=== PATIENT | female | born 1970 | race Caucasian/White ===

== ENCOUNTER → 2017-09-22 | Outpatient (CLI) | payer MEDICARE ==
[~2017-09-22] MED LIST: ACCUNEB 0.1.25 MG/1 INH; ACETAMINOPHEN-O1 TAB PO; AMOXICILLIN500 MG PO; ASPIRIN81 M1 PO; ATARAX,VISTARIL50 MG PO; ATIVAN1 MG PO; B12-METHYL1000 MCG PO; CEPHALEXIN500 M1 PO; DOXYCYCLINE100 MG PO; FLONASE 0.05% 121 EA NAS; HYDROCODONE BIT1 T11 PO; KLONOPIN0.5 MG PO; LORAZEPAM0.5 MG PO; LUVOX50 MG PO; MEDROL DOSEPAK4 MG PO; MULTIPLE VITAMI1 TAB PO; ONDANSETRON HYDR4 M1 PO; SEROQUEL100 MG PO; ULTRAM50 MG PO; VITAMIN B-11 TAB PO; VITAMIN D32000 UNIT PO; XOPENEX0.63 MG INH
== END | disposition home or self-care (01) ==
LOC: MAMMO 14:38
DX: Z12.31 Encounter for screening mammogram for malignant neoplasm of breast (principal)

== ENCOUNTER → 2021-07-23 | Outpatient (CLI) | payer OTHER ==
[~2021-07-23] MED LIST changes: +BUSPIRONE15 MG PO; +DOXEPIN HCL10 MG PO; +LAMICTAL100 MG PO; +NEURONTIN600 MG PO; +PRILOSEC20 M1 PO; +TENORMIN25 M1 PO
== END | disposition home or self-care (01) ==
LOC: US 01:48 → CARD 11:30
PROVIDERS: ATTEND Internal Medicine
DX: I70.292 Other atherosclerosis of native arteries of extremities, left leg (principal); R07.2 Precordial pain

== ENCOUNTER → 2021-07-24 | Outpatient (CLI) | payer OTHER | END | disposition home or self-care (01) | LOC: CARD 00:01 | PROVIDERS: ATTEND Internal Medicine | DX: R07.2 Precordial pain (principal); I73.9 Peripheral vascular disease, unspecified ==

== ENCOUNTER → 2022-07-08 | Day surgery (SDC) | payer OTHER ==
[2022-07-07 14:36] LABS: BUN 8 mg/dl (7-24); CHLORIDE 107 mmol/L (98-107); CREATININE 0.91 mg/dL (0.55-1.02); POTASSIUM 4.3 mmol/L (3.5-5.1); SODIUM 137 mmol/L (136-145)
[~2022-07-08] VITALS: Ht 162.5 cm; Wt 79.8 kg
[~2022-07-08] MED LIST changes: +ABILIFY MAINTE400 M1 IM
[2022-07-08 08:07] LABS: BUN 8 mg/dl (7-24); CHLORIDE 113 mmol/L (98-107); POTASSIUM 4.1 mmol/L (3.5-5.1); SODIUM 141 mmol/L (136-145)
[2022-07-08 08:56] VITALS: BP 113/65
[2022-07-08 09:07] VITALS: BP 106/63
[2022-07-08 09:23] VITALS: BP 111/69
== END | disposition home or self-care (01) ==
LOC: SDC 07-04 10:15
PROVIDERS: ATTEND Orthopaedic Surgery
DX: G56.03 Carpal tunnel syndrome, bilateral upper limbs (principal); J44.9 Chronic obstructive pulmonary disease, unspecified; F41.9 Anxiety disorder, unspecified; I10 Essential (primary) hypertension; F31.9 Bipolar disorder, unspecified; Z86.73 Personal history of transient ischemic attack (TIA), and cerebral infarction without residual deficits

== ENCOUNTER → 2022-08-25 | Outpatient (CLI) | payer OTHER | END | disposition home or self-care (01) | LOC: MAMMO 07-17 13:30 → US 07-17 14:00 → MAMMO 01:29 | PROVIDERS: ATTEND Internal Medicine | DX: Z12.31 Encounter for screening mammogram for malignant neoplasm of breast (principal); I73.9 Peripheral vascular disease, unspecified; M79.89 Other specified soft tissue disorders ==

== ENCOUNTER → 2023-03-26 | Outpatient (CLI) | payer OTHER | END | disposition home or self-care (01) | LOC: RAD 12:36 | PROVIDERS: ATTEND Internal Medicine | DX: R07.9 Chest pain, unspecified (principal) ==

== ENCOUNTER → 2023-04-01 | Outpatient (CLI) | payer OTHER | END | disposition home or self-care (01) | LOC: CARD 03-30 10:30 | PROVIDERS: ATTEND Internal Medicine | DX: I49.1 Atrial premature depolarization (principal); R00.0 Tachycardia, unspecified; R53.83 Other fatigue ==

== ENCOUNTER → 2023-04-27 | Outpatient (CLI) | payer OTHER | END | disposition home or self-care (01) | LOC: CARD 11:30 | PROVIDERS: ATTEND Internal Medicine | DX: I31.39 Other pericardial effusion (noninflammatory) (principal); J44.1 Chronic obstructive pulmonary disease with (acute) exacerbation; R06.02 Shortness of breath; R00.0 Tachycardia, unspecified; R53.83 Other fatigue ==

== ENCOUNTER → 2023-04-30 | Outpatient (CLI) | payer OTHER | END | disposition home or self-care (01) | LOC: US 04-16 01:31 | PROVIDERS: ATTEND Internal Medicine | DX: K76.0 Fatty (change of) liver, not elsewhere classified (principal) ==

== ENCOUNTER → 2023-11-19 | Outpatient (CLI) | payer OTHER | END | disposition home or self-care (01) | LOC: US 00:34 | PROVIDERS: ATTEND Internal Medicine | DX: N20.0 Calculus of kidney (principal); R31.9 Hematuria, unspecified; E04.2 Nontoxic multinodular goiter; Z96.0 Presence of urogenital implants ==

== ENCOUNTER → 2023-12-09 | Outpatient (CLI) | payer OTHER | END | disposition home or self-care (01) | LOC: MAMMO 01:35 | PROVIDERS: ATTEND Internal Medicine | DX: Z12.31 Encounter for screening mammogram for malignant neoplasm of breast (principal) ==

== ENCOUNTER → 2023-12-11 | Outpatient (CLI) | payer OTHER ==
[~2023-12-11] MED LIST changes: +IOHEXOL 350 MG/ML 100 ML VIAL IV ONE
== END | disposition home or self-care (01) ==
LOC: LAB 02:08 → CT 02:08 → LAB 10:00 → CT 10:00
PROVIDERS: ATTEND Urology
DX: N20.0 Calculus of kidney (principal); N25.9 Disorder resulting from impaired renal tubular function, unspecified; I70.0 Atherosclerosis of aorta; R31.9 Hematuria, unspecified

== ENCOUNTER 2023-12-26 17:10 | Emergency (ER) | payer OTHER ==
[~2023-12-26] VITALS: Ht 162.5 cm; Wt 64.9 kg
[~2023-12-26 17:10] MED LIST changes: -IOHEXOL 350 MG/ML 100 ML VIAL IV ONE
[2023-12-26] MEDS ORDERED: SILVER SULFADIAZINE 25 GM TUBE T ONE (17:25)
[2023-12-26] MEDS ORDERED: Bacitracin Zinc 14 GM TUBE T ONE (17:25)
[2023-12-26] MEDS ORDERED: SILVADENE20 GM T (17:45)
[2023-12-26] MEDS ORDERED: [UNRECOGNIZED DRUG - REMARK] T (17:45)
[2023-12-26] MEDS ORDERED: ANTIBIOTIC28.4 GM T (17:45)
[2023-12-26] MEDS ORDERED: ACETAMINOPHEN 325 MG TAB PO ONE (17:45)
== END 2023-12-26 17:49 | disposition home or self-care (01) ==
LOC: ED 17:10
DX: T23.101A Burn of first degree of right hand, unspecified site, initial encounter (principal); T21.11XA Burn of first degree of chest wall, initial encounter; T31.0 Burns involving less than 10% of body surface; F41.9 Anxiety disorder, unspecified; J44.9 Chronic obstructive pulmonary disease, unspecified; Z86.73 Personal history of transient ischemic attack (TIA), and cerebral infarction without residual deficits; I10 Essential (primary) hypertension; J45.909 Unspecified asthma, uncomplicated; F31.9 Bipolar disorder, unspecified; Z72.0 Tobacco use; Z90.710 Acquired absence of both cervix and uterus; Z98.890 Other specified postprocedural states; X08.8XXA Exposure to other specified smoke, fire and flames, initial encounter; Y93.89 Activity, other specified; Y92.89 Other specified places as the place of occurrence of the external cause; Y99.8 Other external cause status

== ENCOUNTER → 2023-12-29 | Outpatient (CLI) | payer OTHER ==
[~2023-12-29] MED LIST changes: +ANTIBIOTIC28.4 GM T; +SILVADENE20 GM T; +[UNRECOGNIZED DRUG - REMARK] T
== END | disposition home or self-care (01) ==
LOC: WOUNDCARE 00:09
PROVIDERS: ATTEND Nurse Practitioner Family
DX: T22.191A Burn of first degree of multiple sites of right shoulder and upper limb, except wrist and hand, initial encounter (principal); T23.302A Burn of third degree of left hand, unspecified site, initial encounter; T23.201A Burn of second degree of right hand, unspecified site, initial encounter; T31.0 Burns involving less than 10% of body surface; I10 Essential (primary) hypertension; L53.9 Erythematous condition, unspecified; R60.9 Edema, unspecified; F20.9 Schizophrenia, unspecified; F31.9 Bipolar disorder, unspecified; F17.290 Nicotine dependence, other tobacco product, uncomplicated; Z90.710 Acquired absence of both cervix and uterus; Z79.899 Other long term (current) drug therapy; X10.2XXA Contact with fats and cooking oils, initial encounter; Y93.89 Activity, other specified; Y92.89 Other specified places as the place of occurrence of the external cause; Y99.8 Other external cause status

== ENCOUNTER → 2024-01-06 | Outpatient (CLI) | payer OTHER | END | disposition home or self-care (01) | LOC: WOUNDCARE 01:27 | PROVIDERS: ATTEND Nurse Practitioner Family | DX: T23.302D Burn of third degree of left hand, unspecified site, subsequent encounter (principal); T23.301D Burn of third degree of right hand, unspecified site, subsequent encounter; T22.19 Burn of first degree of multiple sites of shoulder and upper limb, except wrist and hand; T31.0 Burns involving less than 10% of body surface; I10 Essential (primary) hypertension; L53.9 Erythematous condition, unspecified; R60.9 Edema, unspecified; F20.9 Schizophrenia, unspecified; F31.9 Bipolar disorder, unspecified; F17.290 Nicotine dependence, other tobacco product, uncomplicated; Z90.710 Acquired absence of both cervix and uterus; Z79.899 Other long term (current) drug therapy; X10.2XXD Contact with fats and cooking oils, subsequent encounter ==

== ENCOUNTER → 2024-01-21 | Outpatient (CLI) | payer OTHER | END | disposition home or self-care (01) | LOC: WOUNDCARE 01:47 | PROVIDERS: ATTEND Nurse Practitioner Family | DX: T23.302D Burn of third degree of left hand, unspecified site, subsequent encounter (principal); T23.301D Burn of third degree of right hand, unspecified site, subsequent encounter; T22.19 Burn of first degree of multiple sites of shoulder and upper limb, except wrist and hand; T31.0 Burns involving less than 10% of body surface; I10 Essential (primary) hypertension; L53.9 Erythematous condition, unspecified; R60.9 Edema, unspecified; F20.9 Schizophrenia, unspecified; F31.9 Bipolar disorder, unspecified; F17.290 Nicotine dependence, other tobacco product, uncomplicated; Z90.710 Acquired absence of both cervix and uterus; Z79.899 Other long term (current) drug therapy; X10.2XXD Contact with fats and cooking oils, subsequent encounter ==

== ENCOUNTER → 2024-10-07 | Outpatient (CLI) | payer OTHER ==
[2024-10-07 13:09] LABS: BASO # 0.1 10*3/uL (0.0-0.1); BASO % 0.7 % (0.0-1.0); EOS # 0.6 10*3/uL (0.0-0.4); EOS % 6.6 % (1.0-4.0); HEMATOCRIT 42.6 % (37.0-47.0); MEAN CELL VOLUME 97.3 fl (81.0-99.0); MEAN CORPUSCULAR HGB CONC 32.9 g/dl (33.0-37.0); MEAN PLATELET VOLUME 8.6 fl (9.6-12.3); MONO # 0.7 10*3/uL (0.1-1.0); MONO % 7.7 % (3.0-9.0); NEUT # 3.9 10*3/uL (2.3-7.9); NEUT % 42.6 % (47.0-73.0); PLATELET COUNT AUTOMATED 340 10*3/uL (130-400); RED BLOOD COUNT 4.38 10*6/uL (4.10-5.10); WHITE BLOOD COUNT 9.1 10*3/uL (4.8-10.8)
[2024-10-07 13:34] LABS: ALKALINE PHOSPHATASE 95 U/L (46-116); BUN 8 mg/dl (9-23); CHLORIDE 105 mmol/L (98-107); CHOLESTEROL 151 mg/dL (<200); GAMMA GLUTAMYL TRANSPEPTIDASE 32 U/L (0-73); LDL CHOLESTEROL 68 mg/dL (9-159); POTASSIUM 4.2 mmol/L (3.4-5.1); SGPT/ALT 8 U/L (5-49); TOTAL PROTEIN 6.7 gm/dL (6.0-8.0); TRIGLYCERIDES 130 mg/dl (<150)
[2024-10-07 13:44] LABS: VITAMIN D, 25-HYDROXY 34.6 ng/mL (30-100)
== END | disposition home or self-care (01) ==
LOC: LAB 01:29
PROVIDERS: ATTEND Physician Assistant
DX: I51.7 Cardiomegaly (principal); Z51.81 Encounter for therapeutic drug level monitoring; F31.81 Bipolar II disorder